=== PATIENT | female | born 1970 | race American Indian/Alaskan Native ===

== ENCOUNTER 2018-03-09 09:47 | Outpatient (CLI) | payer SELFPAY | END 2018-03-09 09:48 | disposition home or self-care (01) | LOC: C.LAB 09:47 ==

== ENCOUNTER 2018-03-24 10:04 | Outpatient (CLI) | payer SELFPAY | END 2018-03-24 10:05 | disposition home or self-care (01) | LOC: C.LAB 10:04 ==

== ENCOUNTER 2018-04-06 09:56 | Outpatient (CLI) | payer SELFPAY | END 2018-04-06 09:57 | disposition home or self-care (01) | LOC: C.LAB 09:56 ==

== ENCOUNTER 2018-04-15 09:39 | Outpatient (CLI) | payer SELFPAY | END 2018-04-15 09:40 | disposition home or self-care (01) | LOC: C.LAB 09:39 | DX: I82.409 Acute embolism and thrombosis of unspecified deep veins of unspecified lower extremity (principal) ==

== ENCOUNTER 2018-04-27 11:03 | Outpatient (CLI) | payer SELFPAY | END 2018-04-27 11:04 | disposition home or self-care (01) | LOC: C.LAB 11:03 ==

== ENCOUNTER 2018-05-05 11:31 | Outpatient (CLI) | payer SELFPAY | END 2018-05-05 11:32 | disposition home or self-care (01) | LOC: C.LAB 11:31 ==

== ENCOUNTER 2018-05-21 09:11 | Outpatient (CLI) | payer SELFPAY | END 2018-05-21 09:12 | disposition home or self-care (01) | LOC: C.LAB 09:11 ==

== ENCOUNTER 2018-06-01 10:45 | Outpatient (CLI) | payer SELFPAY | END 2018-06-01 10:46 | disposition home or self-care (01) | LOC: C.LAB 10:45 ==

== ENCOUNTER 2018-06-14 09:42 | Outpatient (CLI) | payer SELFPAY | END 2018-06-14 09:43 | disposition home or self-care (01) | LOC: C.LAB 09:42 | DX: I82.409 Acute embolism and thrombosis of unspecified deep veins of unspecified lower extremity (principal) ==

== ENCOUNTER 2018-06-28 10:13 | Outpatient (CLI) | payer SELFPAY | END 2018-06-28 10:14 | disposition home or self-care (01) | LOC: C.LAB 10:13 ==

== ENCOUNTER 2018-07-14 09:09 | Outpatient (CLI) | payer SELFPAY | END 2018-07-14 09:10 | disposition home or self-care (01) | LOC: C.LAB 09:09 ==

== ENCOUNTER 2018-07-19 08:57 | Outpatient (CLI) | payer SELFPAY | END 2018-07-19 08:58 | disposition home or self-care (01) | LOC: C.LAB 08:57 ==